=== PATIENT | male | born 1985 | race Caucasian/White ===

== ENCOUNTER 2022-11-22 13:24 | Emergency (ER) | payer MEDICAID ==
[~2022-11-22] VITALS: Ht 172.7 cm; Wt 90.7 kg
--- NOTE | 2022-11-22 13:53 | NUR ---
PT PLACED BED 11, ATTACHED TO MONITOR. VITAL SIGNS STABLE, O2 SAT 96% ON RA. PT COMPLAINING OF LEFT EAR PAIN
[2022-11-22 13:55] VITALS: BP 136/81
[2022-11-22] MEDS ORDERED: CIPR7.5D9 LEFT EAR (14:24)
--- NOTE | 2022-11-22 14:43 | NUR ---
Patient discharged to home in stable condition. Written and verbal after care instructions given. Patient verbalizes understanding of instruction.
== END 2022-11-22 14:43 | disposition home or self-care (01) ==
LOC: ER 13:28
DX: H60.92 Unspecified otitis externa, left ear (principal); Z79.899 Other long term (current) drug therapy